=== PATIENT | female | born 1980 ===

== ENCOUNTER → 2022-12-11 07:32 | Outpatient (BNVA) | payer OTHER, SELFPAY | PROVIDERS: Visit Provider Psychiatry & Neurology Neurology | DX: Z13.89 Encounter for screening for other disorder (principal) ==

== ENCOUNTER 2023-06-10 15:45 | Outpatient (AMB) | payer OTHER, SELFPAY ==
--- NOTE | 2023-06-10 15:47 | MHC.OFFVIS ---
Intake Vital Signs 06/10/23 15:50 Height 5 ft 4 in Weight 134 lb BMI 23.0 BP 112/70 Blood Pressure Location Lt brachial Position Sitting Pulse 76 Pulse Source Pulse Oximeter Pulse Oximetry (%) 100 Oxygen Delivery Method Room Air Intake Visit Reasons: 6m f/u Migraines - Intake Note: Pt presents to the office for a 6 month follow up for migraines. Pt states her last migraine was last month which lasted 2-3 days. Pt states she believes the sumatriptin isnt really working for her. Allergies No Known Allergies Allergy (Verified 06/10/23 15:47) Medication List - Last Reconciled 06/10/23 by Annalee Cartwright MD magnesium oxide 250 mg PO BEDTIME multivitamin (Daily Multi-Vitamin tablet) 1 tab PO DAILY sumatriptan succinate 50 mg PO Q2-4H PRN HPI HPI Comments History of Present Illness Details 42y/o right handed female comes for follow up of migraines she has 0-1 migraine every month. she is not repsonding to sumatriptan and it can last 3 days. she trie dher mother srizatriptan and responded. she reports migraines since childhood. The headaches are usually right fronto temporal, retroorbital pain , stabbing pain with light and noise sensitvity. No aura . she has 1 episode every other month and usually can last few days . she started magnesium - she is not sure it helped. In Aug 2022, she reported a new kind of head pain, a stabbing pain in left parietal region - episodic - lasted few seconds and had multiple episodes a day.This was not followed by a generalized headaches . Since then she has had 4-5 days of episodic headaches since then she denies neck pain. she denies diplopia, numbness, tingling, vertigo. FOR[facility]LY [facility] Medical History Neuralgia Migraine Beta thalassemia Social History Household Members: Significant Other Housing: House Alcohol intake: current Alcohol intake frequency: holidays/special occasions only Patient Tobacco Use Status: Never used Tobacco Physical Exam Vital Signs: Last Vital Signs Pulse 76 06/10/23 15:50 BP 112/70 06/10/23 15:50 Pulse Ox 100 06/10/23 15:50 Oxygen Delivery Method Room Air 06/10/23 15:50 BMI result Body Mass Index 23.0 Const General: cooperative, healthy appearing and comfortable Nutritional Appearance: average body habitus Orientation/consciousness: patient oriented x3 Limitations: no limitations HEENT Head: Yes normal to inspection and Yes normocephalic Eyes Pupils: Equal, round and reactive pupils present Neck Neck: Yes no meningeal signs Neuro General: patient oriented x3, tone normal, moves all extremities and no meningeal signs Cranial nerves: Yes Facial sensation intact/muscles of mastication intact, Yes Equal, round and reactive pupils present, Yes Bilaterally intact EOM present, Yes Nystagmus not present, Yes Normal facial strength present, Yes Midline tongue present and Yes Symmetric palate elevation present Cognition (Neuro): normal cognition Gait exam (Neuro): Normal gait present Motor exam (neuro): 5/5 motor strength present throughout and Normal motor muscle tone present throughout Coordination: [id number] test normal Assessment & Plan Assessment & Plan (1) Migraine: Code(s): G43.909 - Migraine, unspecified, not intractable, without status migrainosus (2) Neuralgia: Code(s): M79.2 - Neuralgia and neuritis, unspecified Plan Continue magnesium 250-400mg qhs Trial rizatriptan 10mg as needed for migraines Medications: New rizatriptan take 1 tab at onset of headache; if no relief may repeat 1 tab after at least 2 hrs; max = 3 tabs/24 hr PO 12 tabs 6RF Discontinued sumatriptan succinate do not exceed 4 doses per 24 hrs Discontinued Reason: Patient no longer taking 50 mg PO Q2-4H PRN 14 tabs 3RF migraine headache Coding Level of Care Code Est Pt Level 4 (72160) Diagnoses Migraine G43.909 Neuralgia M79.2
[2023-06-10 15:50] VITALS: BP 112/70; PULSE 76; O2SAT 100; BMI 23.0
--- NOTE | 2023-06-10 15:57 | A.OFFVIS_ITS ---
Intake Vital Signs 06/10/23 15:50 Height 5 ft 4 in Weight 134 lb BMI 23.0 BP 112/70 Blood Pressure Location Lt brachial Position Sitting Pulse 76 Pulse Source Pulse Oximeter Pulse Oximetry (%) 100 Oxygen Delivery Method Room Air Intake Visit Reasons: 6m f/u Migraines - Allergies No Known Allergies Allergy (Verified 06/10/23 15:47) PFSH Medical History Neuralgia Migraine Beta thalassemia Social History (Updated 06/10/23 @ 15:52 by Anaya Lassiter MA) Household Members: Significant Other Housing: House Alcohol intake: current Alcohol intake frequency: holidays/special occasions only Patient Tobacco Use Status: Never used Tobacco Physical Exam Vital Signs: Last Vital Signs Pulse 76 06/10/23 15:50 BP 112/70 06/10/23 15:50 Pulse Ox 100 06/10/23 15:50 Oxygen Delivery Method Room Air 06/10/23 15:50 BMI result Body Mass Index 23.0 Quality Reporting (2019) Adult ([facility] 138/10/31/68) Body Mass Index: 23.0 Coding
== END 2023-06-10 16:04 | disposition home or self-care (01) ==
PROVIDERS: Visit Provider Psychiatry & Neurology Neurology
DX: G43.909 Migraine, unspecified, not intractable, without status migrainosus (principal); M79.2 Neuralgia and neuritis, unspecified
CPT/HCPCS: 99214

== ENCOUNTER → 2023-06-10 15:45 | Outpatient (BNVA) | payer OTHER, SELFPAY | PROVIDERS: Visit Provider Psychiatry & Neurology Neurology ==